=== PATIENT | female | born 1940 | race Caucasian/White ===

== ENCOUNTER → 2020-10-16 | Outpatient (CLI) | payer MEDICARE, OTHER ==
[2020-10-16 10:05] LABS: HEMOGLOBIN 11.8 g/dL (12.0-16.0)
[2020-10-16 10:22] LABS: BLOOD UREA NITROGEN 24 mg/dL (7-26); BUN/CREATININE RATIO 28 (6-25); CREATININE, SERUM 0.86 mg/dL (0.57-1.11); EST GLOMERULAR FILTRATION RATE > 60 ML/MIN (60-)
[2020-10-16 10:25] LABS: INR 0.92; PROTHROMBIN TIME 12.9 seconds (11.9-14.5)
[2020-10-16 10:26] LABS: PARTIAL THROMBOPLASTIN TIME 33.2 seconds (23.8-35.5)
== END ==
LOC: DX 09:32
PROVIDERS: ATTEND Internal Medicine Infectious Disease
DX: M65.842 Other synovitis and tenosynovitis, left hand (principal)
CPT/HCPCS: 36415; 36569; 71045; 82565; 84520; 85014; 85049; 85610; 85730